=== PATIENT | female | born 1950 | race Caucasian/White ===

== ENCOUNTER → 2020-06-25 11:46 | Outpatient (CLI) | payer MEDICARE, OTHER, SELFPAY ==
--- NOTE | 2020-06-25 11:55 | DI.MRI.S_ITS ---
BREAST MRI OF BOTH BREASTS: 06/25/2020 CLINICAL: Breast implant status. TECHNIQUE: The patient was placed prone in a dedicated breast imaging coil. Silicone sensitive sequences were performed. Precontrast axial STIR and 3D FLASH without fat saturation sequences were obtained. Both before and after bolus injection of contrast, sequential 1-minute axial 3D FLASH with fat saturation sequences for 3 time points, with subtraction images and maximum intensity projections (MIP's) generated. Delayed sagittal FLASH images with fat saturation were also obtained. Computer-aided detection, including computer algorithm analysis of MRI image data for lesion detection and characterization, pharmacokinetic analysis, with further physician review for interpretation, was performed. COMPARISON: [facility], , DIAGNOSTIC BETHEL WITH HOME / IMP, 01/11/2018, 12:12. [facility], SCREENING MAMMO IMPLANT BI, 06/25/2020, 12:14. FINDINGS: Image quality: Acceptable. T2 fat sat sequences demonstrate some misregistration. There is mild background parenchymal enhancement. Right breast: The right breast demonstrates intact breast implants. There is extensive infolding of the capsule. No evidence of rupture. There is no abnormal focus, mass, or abnormal enhancement. No axillary or internal mammary chain adenopathy. Left breast: The left breast demonstrates intact breast implants. There is extensive infolding of the capsule. No evidence of implant rupture. There is no abnormal focus, mass, or abnormal enhancement. No axillary or internal mammary chain adenopathy. IMPRESSION: NEGATIVE 1. No evidence of malignancy. 2. Bilateral breast implants have infolding but are intact. Recommend annual screening mammography. This exam was interpreted at Station ID: [id number]. Electronically Signed By: Juma Kyle acr/:06/25/2020 15:42:35 letter sent: Normal Exam ACR BI-RADS Category 1: Negative 3341F
--- NOTE | 2020-06-25 11:55 | DI.MG.S_ITS ---
BILATERAL DIGITAL SCREENING MAMMOGRAM 3D/2D WITH CAD WITH AUGMENTATION: 06/25/2020 CLINICAL: Routine screening. Comparison is made to exams dated: 01/11/2018 mammogram and 08/30/2016 mammogram - outside location. The tissue of both breasts is predominantly fatty. Current study was also evaluated with a Computer Aided Detection (CAD) system. Bilateral breast implants are stable. No significant masses, calcifications, or other findings are seen in either breast. There has been no significant interval change. IMPRESSION: NEGATIVE There is no mammographic evidence of malignancy. A 1 year screening mammogram is recommended. This exam was interpreted at Station ID: [id number]. NOTE: For mammograms, a report in lay terms will be sent to the patient. Approximately 15% of breast malignancies will not be visualized mammographically. In the management of a palpable breast mass, a negative mammogram must not discourage biopsy of a clinically suspicious lesion. Electronically Signed By: Juma Kyle acr/jaziel:06/25/2020 13:25:04 letter sent: Normal Exam ACR BI-RADS Category 1: Negative 3341F
== END ==
PROVIDERS: PCP Nurse Practitioner; Referring Provider Nurse Practitioner; Visit Provider Nurse Practitioner
DX: Z12.31 Encounter for screening mammogram for malignant neoplasm of breast (principal); Z12.39 Encounter for other screening for malignant neoplasm of breast; Z98.82 Breast implant status
CPT/HCPCS: 77049; 77063; 77067; A9579

== ENCOUNTER → 2020-07-03 12:05 | Outpatient (CLI) | payer MEDICARE, OTHER, SELFPAY ==
[2020-07-03] MEDS: COVID-19 VACC, Ad26(JANSSEN)/PF 0.5 ML IM (12:21)
== END ==
PROVIDERS: PCP Nurse Practitioner; Visit Provider Internal Medicine
DX: Z23 Encounter for immunization (principal)
CPT/HCPCS: 0031A; 91303

== ENCOUNTER → 2021-02-13 11:44 | Outpatient (CLI) | payer MEDICARE, OTHER, SELFPAY ==
[2021-02-13] MEDS: COVID-19 VACC #3, MRNA(MOD) 50 MCG/0.25 ML VIAL IM (11:52)
== END ==
PROVIDERS: PCP Nurse Practitioner; Visit Provider Internal Medicine
DX: Z23 Encounter for immunization (principal)
CPT/HCPCS: 0013A; 91301